=== PATIENT | male | born 1965 | race Asian ===

== ENCOUNTER 2016-04-27 20:07 | Emergency (ER) | payer BC ==
[~2016-04-27] VITALS: Ht 160 cm; Wt 81.5 kg
[~2016-04-27 20:07] MED LIST: AMO500 PO; IBUP400T22 PO; IBUP800T25 PO
[2016-04-27 20:11] VITALS: Ht 160 cm; Wt 81.5 kg
[2016-04-27] MEDS ORDERED: IBUP-1542 PO (20:24)
[2016-04-27] MEDS ORDERED: AZIT250T94 PO (20:24)
[2016-04-27] MEDS ORDERED: BENZ100C70 PO (20:25)
--- NOTE | 2016-04-27 20:31 | ERD ---
ER Documentation Chief Complaint Date/Time DATE: 04/27/16 TIME: 20:26 Chief Complaint Cough and colds x1 week HPI Patient is a 50-year-old male with past medical history of hypertension and hyperlipidemia who presents to the emergency department with a cough and sore throat 1 week. Patient states that his cough is productive with yellow sputum production. Patient reports tactile fevers. Patient states that he has been taking Motrin for symptoms with no alleviation of symptoms. Patient denies any chest pain, shortness of breath, arm pain, jaw pain, diaphoresis. Patient also reporting sore throat. Patient states that he has pain when swallowing. Patient denies any drooling, trismus, hyperextension of his neck. Patient denies taking a flu vaccine this year. Patient denies any sick contacts. No recent travel. Of note, patient states that he takes blood pressure medication in the night. Patient denies any current headache, blurry vision, dizziness, loss of consciousness. ROS All systems reviewed and are negative except as per history of present illness. Medications Home Meds Active Scripts Benzonatate* (Tessalon Perle*) 100 Mg Capsule, 100 MG PO Q8H Y for COUGH, #30 CAP Prov:CARMENCITA SHERMANC 04/27/16 Azithromycin* (Zithromax*) 250 Mg Tablet, 250 MG PO .ZPACK DIRECTED, #6 TAB TAKE 500 MG (2 TABS) THE FIRST DAY THEN 250 MG (1 TAB) DAYS 2-5 Prov:CARMENCITA SHERMAN PA-C 04/27/16 Ibuprofen* (Motrin*) 600 Mg Tab, 600 MG PO Q6, #20 TAB Prov:CARMENCITA SHERMANC 04/27/16 Amoxicillin* (Amoxicillin*) 500 Mg Cap, 500 MG PO BID for 10 Days, CAP Prov:ANDRE PORTERC 03/10/15 Ibuprofen* (Motrin*) 800 Mg Tab, 800 MG PO Q6, #30 TAB Prov:ANDRE PORTER PA-C 03/10/15 Ibuprofen* (Ibuprofen*) 400 Mg Tablet, 400 MG PO Q6H Y for PAIN, #30 TAB Prov:AUBRIE BETANCOURT NP 10/13/14 Amoxicillin* (Amoxicillin*) 500 Mg Cap, 500 MG PO TID for 10 Days, CAP Prov:AUBRIE BETANCOURT [employer] 10/13/14 Allergies Allergies: Coded Allergies: No Known Allergy (Unverified , 10/13/14) PMhx/Soc History of Surgery: No Anesthesia Reaction: No Hx Neurological Disorder: No Hx Respiratory Disorders: No Hx Cardiac Disorders: Yes (htn) Hx Psychiatric Problems: No Hx Miscellaneous Medical Probl: No Hx Alcohol Use: No Hx Substance Use: No Hx Tobacco Use: No Physical Exam Vitals Vital Signs Date Time Temp Pulse Resp B/P Pulse Ox O2 Delivery O2 Flow Rate FiO2 04/27/16 20:11 97.5 86 20 174/104 96 Physical Exam GENERAL: Well-developed, well-nourished male. Appears in no acute distress. Speaking in full sentences. HEAD: Normocephalic, atraumatic. No deformities or ecchymosis. EYE: Pupils equal, round, and reactive to light. EOMs intact. No conjunctival erythema. No eye discharge. ENT: External ear without any masses or tenderness. Auditory canals clear bilaterally. TM visualized bilaterally, non-erythematous, non-bulging. Nasal mucosa pink with no discharge. Oropharynx is pink without any tonsillar erythema or exudates. No uvula deviation. No kissing tonsils. Nontender to palpation of bilateral mastoid processes NECK: Supple. No meningismus. Normal ROM of the neck. No hyperextension of the neck. LUNG: Clear to auscultation bilaterally. No rhonchi, wheezing, rales or coarse breath sounds. HEART: Regular rate and rhythm. No murmurs, rubs or gallops. BACK: No midline tenderness. EXTREMITES: Equal pulses bilaterally. No peripheral clubbing, cyanosis or edema. No unilateral leg swelling. NEUROLOGIC: Alert and oriented to person, place and time. Moving all four extremities. 5/5 strength in all extremities. Normal speech. Steady gait. Procedures/MDM MEDICAL DECISION MAKING: This is 50-year-old male who presents with a productive cough and sore throat 1 week. Vital signs were reviewed. Patient was afebrile. Patient was not hypoxic. ENT exam was normal. Lung exam was normal. Given these findings, the patient's presentation is most consistent with bronchitis. I have a much lower clinical concern for pneumonia, meningitis, sinusitis, otitis externa, acute otitis media, strep pharyngitis, epiglottitis, retropharyngeal abscess, peritonsillar abscess. PRESCRIPTIONS: Zithromax, ibuprofen, Tessalon Perles. DISCHARGE: At this time, patient is stable for discharge and outpatient management. Supportive therapies such as OTC throat lozenges, salt water gurgles, popsicles and jello discussed. I have instructed the patient to follow-up with his/her primary care physician in 1-2 days. I have instructed the patient to promptly return to the ER for any new or worsening symptoms including increased pain, swelling, fever, nausea, vomiting, weakness or difficulty breathing. The patient and/or family expressed understanding of and agreement with this plan. All questions were answered. Home care instructions were provided. Patient's blood pressure was elevated (>120/80) but appears stable without evidence of hypertensive emergency, hypertensive urgency or end-organ failure. I had discussion with the patient about the risks of hypertension. I have advised the patient to follow up with his/her primary care physician for outpatient monitoring and treatment for hypertension in 2-3 days. I have instructed the patient to return to the ER for any new or worsening symptoms including chest pain, shortness of breath, headache, blurred vision, confusion, nausea, vomiting or LOC. Departure Diagnosis: Primary Impression: Bronchitis Condition: Stable Patient Instructions: Bronchitis, Antiobiotic Treatment (Adult) Referrals: [facility] YOU HAVE RECEIVED A MEDICAL SCREENING EXAM AND THE RESULTS INDICATE THAT YOU DO NOT HAVE A CONDITION THAT REQUIRES URGENT TREATMENT IN THE EMERGENCY DEPARTMENT. FURTHER EVALUATION AND TREATMENT OF YOUR CONDITION CAN WAIT UNTIL YOU ARE SEEN IN YOUR DOCTORS OFFICE WITHIN THE NEXT 1-2 DAYS. IT IS YOUR RESPONSIBILITY TO MAKE AN APPOINTMENT FOR FOLOW-UP CARE. IF YOU HAVE A PRIMARY DOCTOR --you should call your primary doctor and schedule an appointment IF YOU DO NOT HAVE A PRIMARY DOCTOR YOU CAN CALL OUR PHYSICIAN REFERRAL HOTLINE AT IF YOU CAN NOT AFFORD TO SEE A PHYSICIAN YOU CAN CHOSE FROM THE FOLLOWING [facility] CL[facility] [address] [facility] [address] [facility] [address] [facility] [address] [facility] [address] [facility]. [facility] [address] [facility]. [facility] YOU HAVE RECEIVED A MEDICAL SCREENING EXAM AND THE RESULTS INDICATE THAT YOU DO NOT HAVE A CONDITION THAT REQUIRES URGENT TREATMENT IN THE EMERGENCY DEPARTMENT. FURTHER EVALUATION AND TREATMENT OF YOUR CONDITION CAN WAIT UNTIL YOU ARE SEEN IN YOUR DOCTORS OFFICE WITHIN THE NEXT 1-2 DAYS. IT IS YOUR RESPONSIBILITY TO MAKE AN APPOINTMENT FOR FOLOW-UP CARE. IF YOU HAVE A PRIMARY DOCTOR --you should call your primary doctor and schedule and appointment IF YOU DO NOT HAVE A PRIMARY DOCTOR YOU CAN CALL OUR PHYSICIAN REFERRAL HOTLINE AT . IF YOU CAN NOT AFFORD TO SEE A PHYSICIAN YOU CAN CHOSE FROM THE FOLLOWING [facility] INSTITUTIONS: [facility] [address] [place] [address] [facility] [address] [place] [address] [facility] + [facility] [address] [place] [address] Additional Instructions: Call your primary care doctor TOMORROW for an appointment during the next 1-2 days.See the doctor sooner or return here if your condition worsens before your appointment time. CARMENCITA SHERMAN PA-C Apr 27, 2016 20:31
== END 2016-04-27 20:30 | disposition home or self-care (01) ==
LOC: E/R 20:07
DX: J20.9 Acute bronchitis, unspecified (principal); I10 Essential (primary) hypertension
CPT/HCPCS: 99284

== ENCOUNTER 2018-07-05 05:29 | Emergency (ER) | payer BC ==
[~2018-07-05] VITALS: Ht 162.6 cm; Wt 81.1 kg
[~2018-07-05 05:29] MED LIST changes: -AMO500 PO; +AMOX500C2 PO; +AZIT250T PO; +BENZ-6 PO; +IBUP-1541 PO; +IBUP-1542 PO; -IBUP400T22 PO; -IBUP800T25 PO; +IBUP800T48 PO
[2018-07-05 05:42] VITALS: BP 168/97; PULSE 82; RESP 20; Ht 162.6 cm; Wt 81.1 kg
[2018-07-05] MEDS ORDERED: IBUPROFEN 800 MG TAB PO ONE (08:00)
[2018-07-05] MEDS ORDERED: BEN25 PO (08:28)
[2018-07-05] MEDS ORDERED: CETI10TA34 PO (08:28)
--- NOTE | 2018-07-05 08:38 | ERD ---
ER Documentation Chief Complaint Chief Complaint uneasy swallowing (like a lump in throat) x 2-3 days; hard to sleep @ nite HPI History of Present Illness: 53-year-old male with history of hypertension hyperlipidemia coming in today with complaint of feeling like something is in his throat for the past 2 to 3 days. Patient reports increased with this sensation at nighttime. Patient with runny nose and allergy-like symptoms. Patient reports this happened approximately 2 years ago when he was given antibiotics. At home pharmacological/nonpharmacological treatment for symptoms: Denies Denies social concerns; Denies recent foreign travel ROS All systems reviewed and are negative except as per history of present illness. Medications Home Meds Active Scripts Diphenhydramine Hcl* (Benadryl*) 25 Mg Cap, 25 MG PO QHS PRN for allergies/throat irritation, #30 CAP Prov:AMY SKAGGS NP 07/05/18 Cetirizine Hcl* (Cetirizine Hcl*) 10 Mg Tab.chew, 10 MG PO WITH BREAKFAST for throat irritation/mucus/allerg, #30 TAB Prov:AMY SKAGGS NP 07/05/18 Benzonatate* (Tessalon Perle*) 100 Mg Capsule, 100 MG PO Q8H PRN for COUGH, #30 CAP Prov:CARMENCITA SHERMAN PA-C 04/27/16 Azithromycin* (Zithromax*) 250 Mg Tablet, 250 MG PO .ZPACK DIRECTED, #6 TAB TAKE 500 MG (2 TABS) THE FIRST DAY THEN 250 MG (1 TAB) DAYS 2-5 Prov:CARMENCITA SHERMAN PA-C 04/27/16 Ibuprofen* (Motrin*) 600 Mg Tab, 600 MG PO Q6, #20 TAB Prov:CARMENCITA SHERMANC 04/27/16 Amoxicillin* (Amoxicillin*) 500 Mg Cap, 500 MG PO BID for 10 Days, CAP Prov:ANDRE PORTER PA-C 03/10/15 Ibuprofen* (Motrin*) 800 Mg Tab, 800 MG PO Q6, #30 TAB Prov:ANDRE PORTER PA-C 03/10/15 Ibuprofen* (Ibuprofen*) 400 Mg Tablet, 400 MG PO Q6H PRN for PAIN, #30 TAB Prov:AUBRIE BETANCOURT NP 10/13/14 Amoxicillin* (Amoxicillin*) 500 Mg Cap, 500 MG PO TID for 10 Days, CAP Prov:AUBRIE BETANCOURT RHYS Gomez NP 10/13/14 Allergies Allergies: Coded Allergies: No Known Allergy (Unverified , 10/13/14) PMhx/Soc History of Surgery: No Anesthesia Reaction: No Hx Neurological Disorder: No Hx Respiratory Disorders: No Hx Cardiac Disorders: Yes (htn) Hx Psychiatric Problems: No Hx Miscellaneous Medical Probl: No Hx Alcohol Use: No Hx Substance Use: No Hx Tobacco Use: No Smoking Status: Never smoker FmHx Family History: No diabetes, No coronary disease Physical Exam Vitals Vital Signs Date Temp Pulse Resp B/P (MAP) Pulse Ox O2 O2 Flow FiO2 Time Delivery Rate 07/05/18 97.7 82 20 168/97 100 05:42 (120) Physical Exam Const: No acute distress, afebrile Head: Atraumatic, no tenderness to palpation over frontal or maxillary sinuses. Eyes: Normal Conjunctiva ENT: Normal External Ears, Nose oropharynx clear without tonsillar exudate.. Postnasal drainage noted. Neck: Full range of motion. No meningismus. Resp: Clear to auscultation bilaterally Cardio: Regular rate and rhythm, no murmurs Abd: Soft, non tender, non distended. No guarding, no masses, no rigidity Skin: No petechiae or rashes Back: No midline or flank tenderness Ext: No cyanosis, or edema Neur: Awake and alert x3, speaking in clear sentences, no focal deficits or facial asymmetry Psych: Normal Mood and Affect Results 24 hrs Current Medications Medications Dose Sig/Arnaldo Start Time Status Last (Trade) Ordered Route PRN Stop Time Admin Dose Reason Admin Ibuprofen 800 mg ONCE ONCE 07/05/18 DC 07/05/18 (Motrin) PO 08:00 07:57 07/05/18 08:01 Procedures/MDM ED course includes a thorough examination and history. Medications: Ibuprofen (patient requested this medication due to throat irritation) Imaging: -- Labs: -- Low suspicion for life-threatening medical emergency. Low suspicion for infectious emergency that requires use of antibiotics or hospitalization. Low suspicion for HEENT medical emergency that requires hospitalization or immediate surgical intervention. Low suspicion for airway compromise. Otherwise healthy patient presenting with constellation of symptoms likely representing uncomplicated allergic rhinitis/postnasal drip as characterized by history, physical exam findings. No respiratory distress, otherwise relatively well appearing and nontoxic. Patient educated on use of saline irrigation. Patient verbalizes understanding of instructions and plan of care. Patient educated on diagnoses, prescriptions, follow-up care, return precautions. Strict return precautions given for worsening condition; questions answered discharge. Disposition for discharge with followup in 2 days with PCP/clinic. Departure Diagnosis: Primary Impression: Post-nasal drip Additional Impression: Allergic rhinitis Allergic rhinitis trigger: unspecified Allergic rhinitis seasonality: unspecified Qualified Codes: J30.9 - Allergic rhinitis, unspecified Condition: Stable Patient Instructions: Understanding Sinus Problems, Allergic Rhinitis Referrals: [facility] CL[facility]ICS YOU HAVE RECEIVED A MEDICAL SCREENING EXAM AND THE RESULTS INDICATE THAT YOU DO NOT HAVE A CONDITION THAT REQUIRES URGENT TREATMENT IN THE EMERGENCY DEPARTMENT. FURTHER EVALUATION AND TREATMENT OF YOUR CONDITION CAN WAIT UNTIL YOU ARE SEEN IN YOUR DOCTORS OFFICE WITHIN THE NEXT 1-2 DAYS. IT IS YOUR RESPONSIBILITY TO M LISA AN APPOINTMENT FOR FOLOW-UP CARE. IF YOU HAVE A PRIMARY DOCTOR --you should call your primary doctor and schedule an appointment IF YOU DO NOT HAVE A PRIMARY DOCTOR YOU CAN CALL OUR PHYSICIAN REFERRAL HOTLINE AT IF YOU CAN NOT AFFORD TO SEE A PHYSICIAN YOU CAN CHOSE FROM THE FOLLOWING [facility] [address] [facility]. [facility] [address] [facility]. [facility] [address] [facility] [facility] [address] [facility] [address] [facility]. [facility]. [address] [facility]. [facility] YOU HAVE RECEIVED A MEDICAL SCREENING EXAM AND THE RESULTS INDICATE THAT YOU DO NOT HAVE A CONDITION THAT REQUIRES URGENT TREATMENT IN THE EMERGENCY DEPARTMENT. FURTHER EVALUATION AND TREATMENT OF YOUR CONDITION CAN WAIT UNTIL YOU ARE SEEN IN YOUR DOCTORS OFFICE WITHIN THE NEXT 1-2 DAYS. IT IS YOUR RESPONSIBILITY TO MAKE AN APPOINTMENT FOR FOLOW-UP CARE. IF YOU HAVE A PRIMARY DOCTOR --you should call your primary doctor and schedule and appointment IF YOU DO NOT HAVE A PRIMARY DOCTOR YOU CAN CALL OUR PHYSICIAN REFERRAL HOTLINE AT . IF YOU CAN NOT AFFORD TO SEE A PHYSICIAN YOU CAN CHOSE FROM THE FOLLOWING [facility] INSTITUTIONS: [facility] [address] [place] [address] [facility] [address] [place] [address] [facility] + [facility] [address] [place] [address] Additional Instructions: Thank you very much for allowing us to participate in your care. Your health and safety is our top priority at [facility]. It is important to read all discharge instructions and education provided in your discharge packet. *Start saline irrigation in the morning or at night every day for the next week. Then do 3 times a week for maintenance. A picture has been provided for your education on the item to purchase. Patient have reported that this practice of saline irrigation has helped more than medications for the symptoms.* Call your primary care doctor TOMORROW for an appointment during the next 2-4 days and bring all the information and medications prescribed. Have prescriptions filled and follow precisely the directions on the label. -Cetirizine as an antihistamine that should not cause drowsiness; take this medication every day for allergy-like symptoms/cough/runny nose/throat irritation/mucus in throat. -Diphenhydramine as an antihistamine that will cause drowsiness; take this medication every day for allergy-like symptoms/cough/runny nose/throat irritation/mucus in throat. If the symptoms get worse and your provider is unavailable, return to the Emergency Department immediately. AMY SKAGGS NP Jul 05, 2018 08:38
== END 2018-07-05 08:40 | disposition home or self-care (01) ==
LOC: FTE 05:29
DX: R09.82 Postnasal drip (principal); J30.9 Allergic rhinitis, unspecified; I10 Essential (primary) hypertension
CPT/HCPCS: Z7502; Z7610; 99282